=== PATIENT | male | born 1980 | race Caucasian/White ===

== ENCOUNTER 2018-09-17 13:46 | Emergency (ER) | payer MEDICAID | END 2018-09-17 17:08 | disposition home or self-care (01) | LOC: FTE 13:46 | DX: S82.892A Other fracture of left lower leg, initial encounter for closed fracture (principal); X58.XXXA Exposure to other specified factors, initial encounter; Y92.322 Soccer field as the place of occurrence of the external cause | CPT/HCPCS: 29505; 73610; 73630-LT; 99283-25 ==